=== PATIENT | female | born 1955 | race Caucasian/White ===

== ENCOUNTER 2019-01-29 14:39 | Emergency (ER) | payer OTHER ==
[~2019-01-29] VITALS: Ht 167.6 cm; Wt 74.8 kg
[~2019-01-29 14:39] MED LIST: DONE10TA10 PO
[2019-01-29 14:42] VITALS: BP 135/80
--- NOTE | 2019-01-29 14:42 | NUR ---
PT BIBA BLS TO BED 3
--- NOTE | 2019-01-29 15:03 | NUR ---
PT BIB EMS FROM [facility] FOR RASH R/O SCABIES PER STAFF. TRIED CLOTRIMAZOLE CREAM WITH NO RELIEF. REPORTS RASH TO BILATERAL ARMS/LEGS, CHEST. VSS; PATIENT POSITIONED FOR COMFORT; HOB ELEVATED; BEDRAILS UP X1; BED DOWN. ER MD MADE AWARE OF PT STATUS.
[2019-01-29 16:00] VITALS: BP 135/80
--- NOTE | 2019-01-29 16:01 | NUR ---
Patient discharged with v/s stable. Written and verbal after care instructions given and explained. Patient alert, oriented and verbalized understanding of instructions. Ambulatory with steady gait. All questions addressed prior to discharge. ID band removed. Patient advised to follow up with PMD. Rx of PREDNISONE AND BENADRYL given. Patient educated on indication of medication including possible reaction and side effects. Opportunity to ask questions provided and answered.
== END 2019-01-29 16:01 | disposition home or self-care (01) ==
LOC: MED 14:39
DX: R21 Rash and other nonspecific skin eruption (principal); Z79.899 Other long term (current) drug therapy
CPT/HCPCS: 99283

== ENCOUNTER 2019-09-30 12:41 | Emergency (ER) | payer OTHER ==
[~2019-09-30] VITALS: Ht 157.5 cm; Wt 80.5 kg
[2019-09-30 12:47] VITALS: BP 119/61
--- NOTE | 2019-09-30 12:53 | NUR ---
PATIENT PRESENTS TO ED FROM [facility] C/O AL. PT WITH DEMENTIA. STAFF STATED THAT SHE IS MORE COMBATIVE THAN USUAL AND "NOT HER NORMAL SELF." +EDEMA BILATERAL LE, +SCABS/RASHES ON BILATERAL ANKLES. PT DENIES PAIN AT THIS TIME. SKIN IS PINK/WARM/DRY; AAOX1- ORIENTED TO NAME ONLY. PATIENT IS ABLE TO FOLLOW COMMANDS. LUNGS CLEAR BL; HR EVEN AND REGULAR; PT DENIES ANY FEVER, CP, SOB, OR COUGH AT THIS TIME; PATIENT STATES PAIN OF 0/10 AT THIS TIME; VSS; PATIENT POSITIONED FOR COMFORT; HOB ELEVATED; BEDRAILS UP X2; BED DOWN. ER MD MADE AWARE OF PT STATUS. PMH: DEMENTA, HYPERLIPIDEMIA MEDS: DONEZAPIL, DIPHENHYDRAMINE
[2019-09-30] MEDS ORDERED: IBUPROFEN 400 MG TAB PO ONE (12:55)
[2019-09-30] MEDS ORDERED: ACETAMINOPHEN EXTRA STRENGTH 500 MG TAB PO ONE (12:55)
--- NOTE | 2019-09-30 13:20 | NUR ---
straight cath performed using sterile technique w/ 14fr cath. pt tolerated well. immediate return clear yellow urine, sample collected and sent to lab. pt positioned to comfort after procedure.
[2019-09-30 13:37] LABS: BASOPHILS % (AUTO) 0.3 % (0.0-2.0); EOSINOPHILS # (AUTO) 0.1 K/uL (0-0.4); EOSINOPHILS % (AUTO) 2.2 % (0.0-4.0); HEMATOCRIT 41.6 % (36-48); HEMOGLOBIN 13.8 g/dL (12.0-16.0); LYMPHOCYTES # (AUTO) 1.5 K/uL (2.5-16.5); LYMPHOCYTES % (AUTO) 22.8 % (20.5-51.1); MEAN CORPUSCULAR HEMOGLOBIN 32 pg (27-31); MEAN CORPUSCULAR HGB CONC 33 g/dL (33-37); MEAN CORPUSCULAR VOLUME 95.3 fL (80-94); MONOCYTES # (AUTO) 0.4 K/uL (0.8-1.0); MONOCYTES % (AUTO) 6.2 % (1.7-9.3); NEUTROPHILS # (AUTO) 4.6 K/uL (1.8-7.7); NEUTROPHILS % (AUTO) 68.5 % (42.2-75.2); PLATELET COUNT (AUTO) 263 K/uL (140-450); RED BLOOD CELL COUNT(AUTO) 4.36 MIL/uL (4.20-5.40); RED CELL DISTRIBUTION WIDTH 12.9 % (11.6-13.7); WHITE BLOOD COUNT (AUTO) 6.7 K/uL (4.8-10.8)
[2019-09-30 13:54] LABS: ANION GAP 13.6 (8-16); CARBON DIOXIDE 27.7 mmol/L (21-32); CREATININE 0.6 mg/dL (0.6-1.3); POTASSIUM 3.3 mmol/L (3.5-5.1)
[2019-09-30 13:55] LABS: APPEARANCE,URINE SL CLOUDY (CLEAR); BILIRUBIN,URINE NEGATIVE (NEGATIVE); BLOOD, URINE NEGATIVE (NEGATIVE); COLOR,URINE YELLOW (YELLOW); LEUKOCYTE ESTERASE ,URINE TRACE (NEGATIVE); NITRITE, URINE POSITIVE (NEGATIVE); UGLUCOSE NEGATIVE (NEGATIVE)
[2019-09-30 13:59] LABS: ALBUMIN 3.9 g/dL (3.4-5.0); TOTAL BILIRUBIN 0.6 mg/dL (0.0-1.0)
[2019-09-30 14:07] LABS: RBC,URINE 0-5 /HPF (0-5)
[2019-09-30] MEDS ORDERED: SULFAMETH/TRIMETH DS 800/160MG 1 TAB PO ONE (14:20)
[2019-09-30] MEDS ORDERED: CEPHALEXIN 500 MG CAP PO ONE (14:20)
--- NOTE | 2019-09-30 14:25 | NUR ---
CALL TO [facility] TRANSPORTATION BACK TO FACILITY; ETA [phone].
[2019-09-30 15:33] VITALS: BP 110/60
--- NOTE | 2019-09-30 15:34 | NUR ---
Patient discharged with v/s stable. Written and verbal after care instructions given and explained to caregiver. Ambulatory with steady gait. All questions addressed prior to discharge. ID band removed. Patient advised to follow up with PMD. Rx of Keflex given. Patient educated on indication of medication including possible reaction and side effects. Opportunity to ask questions provided and answered.
== END 2019-09-30 15:34 | disposition home or self-care (01) ==
LOC: MED 12:41
DX: N39.0 Urinary tract infection, site not specified (principal); R60.0 Localized edema; R03.0 Elevated blood-pressure reading, without diagnosis of hypertension; F03.90 Unspecified dementia, unspecified severity, without behavioral disturbance, psychotic disturbance, mood disturbance, and anxiety; E78.5 Hyperlipidemia, unspecified; Z79.899 Other long term (current) drug therapy; Z88.2 Allergy status to sulfonamides
CPT/HCPCS: 36415; 80053; 81001; 82140; 85025; 87086; 87186; 99284; C1758

== ENCOUNTER 2020-03-09 19:15 | Emergency (ER) | payer OTHER ==
[~2020-03-09] VITALS: Ht 157.5 cm; Wt 77.1 kg
[2020-03-09 19:15] VITALS: BP 119/71
--- NOTE | 2020-03-09 19:15 | NUR ---
PT BIBA TO ER BED 09
--- NOTE | 2020-03-09 19:20 | NUR ---
JULIUS FROM [facility]. WITH VAGINAL PAIN X 3 HOURS. PER EMS PT HAS UNKNOWN PROTRUDING MASS FROM VAGINA. HEART SOUND S1S2 PRESENT. A&O X2. PT IS CALM AND COOPERATIVE. VSS. VAGINAL EXAM PERFORMED BY LETTY GAMBINO WITH RN AT BEDSIDE. NO MASS OR PROTRUSION OR ANY DEFORMITY NOTED FROM VAGINA. SIDE RAILS UP X 2. MEDHX- DEMENTIA ALLERGIES- SULFA
--- NOTE | 2020-03-09 21:21 | NUR ---
CALLED [facility] AND GAVE REPORT TO MAYRA Marquee. ALL QUESTIONS AND CONCERNS ANSWERED AT THIS TIME. TRANSPORT ETA WILL BE AT 1045.
--- NOTE | 2020-03-09 21:44 | NUR ---
pt sitting in bed comfortably. no distress noted.
--- NOTE | 2020-03-09 23:34 | NUR ---
Patient discharged with v/s stable. Written and verbal after care instructions given and explained. Patient verbalized understanding. Ambulance Transport to [facility]. All questions addressed prior to discharge. Advised to follow up with PMD.
[2020-03-09 23:35] VITALS: BP 124/82
== END 2020-03-09 23:34 | disposition home or self-care (01) ==
LOC: MED 19:15
DX: N81.10 Cystocele, unspecified (principal); F03.90 Unspecified dementia, unspecified severity, without behavioral disturbance, psychotic disturbance, mood disturbance, and anxiety; Z79.899 Other long term (current) drug therapy; Z90.710 Acquired absence of both cervix and uterus
CPT/HCPCS: 99283

== ENCOUNTER 2021-08-07 15:48 | Emergency (ER) | payer OTHER ==
[~2021-08-07] VITALS: Ht 157.5 cm; Wt 77.1 kg
[2021-08-07 15:58] VITALS: BP 132/88
--- NOTE | 2021-08-07 15:58 | NUR ---
66 Y/O FEMALE BIBA FROM [facility]. PER EMS C/O VAGINAL BLEEDING STARTED TODAY. GCS 14. A&OX1. MEDHX: ALZHEIMER'S, DEMENTIA ALLERGIES: SULFA
--- NOTE | 2021-08-07 16:04 | NUR ---
DR HERNDON EXAMINING PT
--- NOTE | 2021-08-07 16:11 | NUR ---
CALLED PT'S SON, ARA PRADHAN STATES HE IS POWER OF GEOCHEMISTRY TEACHER AND PT'S CODE STATUS IS DNR. STATES IS UNABLE TO PROVIDE PAPERWORK.
--- NOTE | 2021-08-07 17:24 | NUR ---
Pelvic exam performed by DR HERNDON with GAMAL CABRERA at bedside for entire examination. Patient tolerated procedure WELL. Patient assisted to position of comfort after examination.
--- NOTE | 2021-08-07 17:32 | NUR ---
CALLED FAMILY PT SON'S FAMILY WILL COME TO PICK PT UP, BACK TO FACILITY. NO ETA GIVEN.
[2021-08-07 18:26] VITALS: BP 132/88
--- NOTE | 2021-08-07 18:26 | NUR ---
Patient discharged with v/s stable. Written and verbal after care instructions given and explained. Patient alert, oriented and verbalized understanding of instructions. Wheel Chair Assisted with to car. All questions addressed prior to discharge. ID band removed. Patient advised to follow up with PMD. Opportunity to ask questions provided and answered.
== END 2021-08-07 18:26 | disposition home or self-care (01) ==
LOC: MED 15:48
DX: N93.9 Abnormal uterine and vaginal bleeding, unspecified (principal); Z88.2 Allergy status to sulfonamides
CPT/HCPCS: 99284

== ENCOUNTER 2022-02-26 12:12 | Emergency (ER) | payer OTHER ==
[~2022-02-26] VITALS: Ht 160 cm; Wt 47.6 kg
--- NOTE | 2022-02-26 12:17 | NUR ---
BIBA BLS TO ER BED 6
[2022-02-26 12:18] VITALS: BP 110/64
--- NOTE | 2022-02-26 12:26 | NUR ---
JESSICA Lyons at bedside to exam patient.
--- NOTE | 2022-02-26 12:30 | NUR ---
Patient BIB by FARHAN from [facility]. C/O fall x 1 day. Per reported, patient fell yesterday, staff called- patient had right arm pain. PMHx: Dementia and Alzheimer
[2022-02-26] MEDS ORDERED: PRE.625 VG (12:31)
--- NOTE | 2022-02-26 12:41 | NUR ---
Called and spoke with staff in [facility] and asked more informations of incident.
--- NOTE | 2022-02-26 12:42 | NUR ---
[facility] staff will arrange transportation for patient.
[2022-02-26 13:33] VITALS: BP 110/64
--- NOTE | 2022-02-26 13:33 | NUR ---
Patient discharged with v/s stable. Written and verbal after care instructions given and explained. Patient verbalized understanding. Wheel Chair Assisted with to car. All questions addressed prior to discharge. Advised to follow up with PMD.
== END 2022-02-26 13:33 | disposition home or self-care (01) ==
LOC: MED 12:12
DX: Z00.00 Encounter for general adult medical examination without abnormal findings (principal); Z79.899 Other long term (current) drug therapy; F03.90 Unspecified dementia, unspecified severity, without behavioral disturbance, psychotic disturbance, mood disturbance, and anxiety; Z88.2 Allergy status to sulfonamides; W18.39XA Other fall on same level, initial encounter; Y93.01 Activity, walking, marching and hiking; Y92.89 Other specified places as the place of occurrence of the external cause; Y99.8 Other external cause status
CPT/HCPCS: 99283

== ENCOUNTER 2022-06-18 14:42 | Emergency (ER) | payer OTHER ==
[~2022-06-18] VITALS: Ht 157.5 cm; Wt 56.7 kg
[~2022-06-18 14:42] MED LIST changes: +CEPH-588 PO; +PRE.625 VG; +[UNRECOGNIZED DRUG - CODE] PO
[2022-06-18 14:47] VITALS: BP 91/55
[2022-06-18 17:00] VITALS: BP 118/75
[2022-06-18] MEDS ORDERED: DICL100G5 TP (18:36)
[2022-06-18] MEDS ORDERED: LID5T TP (18:36)
== END 2022-06-18 20:40 | disposition home or self-care (01) ==
LOC: MED 14:42
DX: S09.90XA Unspecified injury of head, initial encounter (principal); M54.2 Cervicalgia; M19.90 Unspecified osteoarthritis, unspecified site; F03.90 Unspecified dementia, unspecified severity, without behavioral disturbance, psychotic disturbance, mood disturbance, and anxiety; Z88.2 Allergy status to sulfonamides; Z79.899 Other long term (current) drug therapy; W19.XXXA Unspecified fall, initial encounter; Y93.89 Activity, other specified; Y92.89 Other specified places as the place of occurrence of the external cause; Y99.8 Other external cause status
CPT/HCPCS: 70450; 72125; 99284

== ENCOUNTER 2022-09-08 06:34 | Emergency (ER) | payer OTHER ==
[~2022-09-08] VITALS: Ht 162.6 cm; Wt 54.4 kg
[~2022-09-08 06:34] MED LIST changes: +DICL100G5 TP; +LID5T TP
[2022-09-08 06:36] VITALS: BP 99/65
--- NOTE | 2022-09-08 06:38 | NUR ---
PT BIBA BLS ER BED 5
--- NOTE | 2022-09-08 07:01 | NUR ---
PATIENT ARRIVED FROM [facility] S/P FALL, UNWITNESSED. HAS APPROX. 1-2 CM LACERATION TOP OF HEAD (LEFT)
[2022-09-08 07:30] LABS: BASOPHILS % (AUTO) 0.6 % (0.0-2.0); EOSINOPHILS # (AUTO) 0.1 K/uL (0-0.4); EOSINOPHILS % (AUTO) 1.2 % (0.0-4.0); HEMATOCRIT 34.5 % (36-48); HEMOGLOBIN 11.8 g/dL (12.0-16.0); LYMPHOCYTES # (AUTO) 1.3 K/uL (2.5-16.5); LYMPHOCYTES % (AUTO) 22.9 % (20.5-51.1); MEAN CORPUSCULAR HEMOGLOBIN 33 pg (27-31); MEAN CORPUSCULAR HGB CONC 34 g/dL (33-37); MEAN CORPUSCULAR VOLUME 95.2 fL (80-94); MONOCYTES # (AUTO) 0.4 K/uL (0.8-1.0); MONOCYTES % (AUTO) 6.5 % (1.7-9.3); NEUTROPHILS # (AUTO) 3.8 K/uL (1.8-7.7); NEUTROPHILS % (AUTO) 68.8 % (42.2-75.2); PLATELET COUNT (AUTO) 197 K/uL (140-450); RED BLOOD CELL COUNT(AUTO) 3.63 MIL/uL (4.20-5.40); RED CELL DISTRIBUTION WIDTH 13.6 % (11.6-13.7); WHITE BLOOD COUNT (AUTO) 5.5 K/uL (4.8-10.8)
--- NOTE | 2022-09-08 07:31 | NUR ---
Patient taken for CT scan via [facility] at this time.
--- NOTE | 2022-09-08 07:38 | NUR ---
Patient returned from CT scan via [facility].
[2022-09-08 07:43] LABS: ALBUMIN 3.8 g/dL (3.4-5.0); ANION GAP 12.3 (8-16); ASPARTATE AMINOTRANSFERASE 26 U/L (15-37); CARBON DIOXIDE 26.9 mmol/L (21-32); CHLORIDE 108 mmol/L (98-107); CREATININE 0.4 mg/dL (0.6-1.3); GFR ARICAN-AMERICAN 204 mL/min (>90); GLUCOSE 82 mg/dL (74-106); POTASSIUM 4.2 mmol/L (3.5-5.1); SODIUM SERUM 143 mmol/L (136-145); TOTAL BILIRUBIN 0.7 mg/dL (0.0-1.0); UREA NITROGEN, BLOOD 18 mg/dL (7-18)
[2022-09-08] MEDS ORDERED: IBUPROFEN 600 MG TAB PO ONE (08:05)
[2022-09-08] MEDS ORDERED: cefTRIAXone 1,000 MG in LIDOCAINE MPF 1% 2.1 ML IM ONE (08:10)
[2022-09-08] MEDS ORDERED: CEPH500C16 PO (08:12)
[2022-09-08] MEDS ORDERED: LIDOCAINE MPF 1% 5 ML ONE (08:20)
[2022-09-08] MEDS ORDERED: cefTRIAXone 1,000 MG VIAL ONE (08:20)
[2022-09-08 09:00] LABS: APPEARANCE,URINE SLIGHTLY CLOUDY (CLEAR); BILIRUBIN,URINE NEGATIVE (NEGATIVE); BLOOD, URINE TRACE-I (NEGATIVE); COLOR,URINE YELLOW (YELLOW); LEUKOCYTE ESTERASE ,URINE NEGATIVE (NEGATIVE); NITRITE, URINE POSITIVE (NEGATIVE); UGLUCOSE NEGATIVE (NEGATIVE)
[2022-09-08 09:19] LABS: RBC,URINE 0-5 /HPF (0-5); WBC,URINE 0-5 /HPF (0-5)
[2022-09-08 09:20] LABS: OTHER CASTS, URINE None Seen /LPF (None Seen)
[2022-09-08 09:48] VITALS: BP 110/65
--- NOTE | 2022-09-08 09:48 | NUR ---
[facility] CONTACTED AND MADE AWARE OF PT D/C. REPORT GIVEN TO TATIANA CABRERA
--- NOTE | 2022-09-08 09:48 | NUR ---
Patient discharged with v/s stable. REPORT GIVEN TO TATIANA CARBERA. ALL QUESTIONS ANSWERERD. Written and verbal after care instructions FOR LACERATION CARE, UTI AND FALL PREVENTION given and explained. . PT Ambulatory with ASSIST to car. All questions addressed prior to discharge. ID band removed. Patient advised to follow up with PMD. Rx of KELFEX given.
--- NOTE | 2022-09-08 09:49 | NUR ---
PT TX BACK TO [facility]. TRANSPORTATION PROVIDED BY FACILITY. AUTO INSPECTOR :SCOTT
== END 2022-09-08 09:48 | disposition home or self-care (01) ==
LOC: MED 06:34
DX: S01.01XA Laceration without foreign body of scalp, initial encounter (principal); E78.2 Mixed hyperlipidemia; G31.89 Other specified degenerative diseases of nervous system; W18.30XA Fall on same level, unspecified, initial encounter; Y93.89 Activity, other specified; Y92.89 Other specified places as the place of occurrence of the external cause; Y99.8 Other external cause status
CPT/HCPCS: 12001; 36415; 70450; 71045; 80053; 81001; 84484; 85025; 93005; 96372; 99285; J0696; J2001

== ENCOUNTER 2022-10-18 13:44 | Inpatient (IN) | payer OTHER ==
[~2022-10-18] VITALS: Ht 165.1 cm; Wt 45.8 kg
[~2022-10-18 13:44] MED LIST changes: +CEPH500C16 PO
--- NOTE | 2022-10-18 13:50 | NUR ---
Trina EMMANUELA to bed 10
[2022-10-18 13:57] VITALS: BP 136/78
--- NOTE | 2022-10-18 14:00 | NUR ---
67 Y/O FEMALE JULIUS FROM [facility] C/O UNWITNESSED FALL, PER EMS FACILITY NURSES STATED THAT WHEN THEY PICKED PT UP THEY HEARD A "POP" IN THE LEFT SHOULDER, PT NOTED TO BE GUARDING LEFT SHOULDER AND ARM. CMS INTACT ALLERGY: SULFA PMH: ALZHEIMERS DEMENTIA
--- NOTE | 2022-10-18 16:21 | NUR ---
PT PLACED IN LEFT SHOULDER SLING.
[2022-10-18] MEDS ORDERED: NACL 0.9% 1,000 ML IV SCH (17:05)
[2022-10-18 17:45] LABS: ALBUMIN 3.5 g/dL (3.4-5.0); ASPARTATE AMINOTRANSFERASE 28 U/L (15-37); CREATININE 0.5 mg/dL (0.6-1.3); GFR ARICAN-AMERICAN 158 mL/min (>90); GLUCOSE 103 mg/dL (74-106); TOTAL BILIRUBIN 0.4 mg/dL (0.0-1.0); UREA NITROGEN, BLOOD 20 mg/dL (7-18)
[2022-10-18] MEDS ORDERED: PRE.625 TOP (17:56)
[2022-10-18] MEDS ORDERED: METH-1681 PO (17:56)
[2022-10-18] MEDS ORDERED: ENOXAPARIN 40 MG/0.4 ML SYR SUBQ SCH (18:05)
[2022-10-18 18:10] LABS: ANION GAP 5.3 (8-16); CHLORIDE 106 mmol/L (98-107); POTASSIUM 5.3 mmol/L (3.5-5.1); SODIUM SERUM 135 mmol/L (136-145)
[2022-10-18] MEDS: NACL 0.9% 1,000 ML IV SCH (18:23)
[2022-10-18 18:32] LABS: BASOPHILS % (AUTO) 0.3 % (0.0-2.0); EOSINOPHILS % (AUTO) 0.5 % (0.0-4.0); HEMATOCRIT 36.7 % (36-48); HEMOGLOBIN 12.5 g/dL (12.0-16.0); LYMPHOCYTES # (AUTO) 1.6 K/uL (2.5-16.5); LYMPHOCYTES % (AUTO) 16.7 % (20.5-51.1); MEAN CORPUSCULAR HEMOGLOBIN 33 pg (27-31); MEAN CORPUSCULAR HGB CONC 34 g/dL (33-37); MEAN CORPUSCULAR VOLUME 96.2 fL (80-94); MONOCYTES # (AUTO) 0.6 K/uL (0.8-1.0); MONOCYTES % (AUTO) 6.3 % (1.7-9.3); NEUTROPHILS # (AUTO) 7.2 K/uL (1.8-7.7); NEUTROPHILS % (AUTO) 76.2 % (42.2-75.2); PLATELET COUNT (AUTO) 189 K/uL (140-450); RED BLOOD CELL COUNT(AUTO) 3.81 MIL/uL (4.20-5.40); RED CELL DISTRIBUTION WIDTH 12.5 % (11.6-13.7); WHITE BLOOD COUNT (AUTO) 9.5 K/uL (4.8-10.8)
--- NOTE | 2022-10-18 19:10 | NUR ---
REPORT TO RIDDHI CABRERA, TRANSFER OF CARE AT THIS TIME
[2022-10-18 19:13] LABS: APPEARANCE,URINE SL CLOUDY (CLEAR); BILIRUBIN,URINE NEGATIVE (NEGATIVE); BLOOD, URINE TRACE-I (NEGATIVE); COLOR,URINE YELLOW (YELLOW); LEUKOCYTE ESTERASE ,URINE NEGATIVE (NEGATIVE); NITRITE, URINE NEGATIVE (NEGATIVE); UGLUCOSE NEGATIVE (NEGATIVE)
[2022-10-18 19:33] LABS: RBC,URINE NONE SEEN /HPF (0-5); TRICHOMONAS,URINE None Seen /HPF (None Seen); WBC,URINE NONE SEEN /HPF (0-5); YEAST,URINE None Seen /HPF (None Seen)
--- NOTE | 2022-10-18 19:47 | NUR ---
Patient is A/Ox1, confused, resting comfortably in bed, chest rise and fall symmetrical, no s/s of distress. Addendum: 10/18/22 at 2153 by [id number] Patient is A/Ox0, confused, resting comfortably in bed, chest rise and fall symmetrical, no s/s of distress.
--- NOTE | 2022-10-18 20:40 | NUR ---
Patient is A/Ox1, confused, resting comfortably in bed, chest rise and fall symmetrical, no s/s of distress. Addendum: 10/18/22 at 2153 by [id number] Patient is A/Ox0, confused, resting comfortably in bed, chest rise and fall symmetrical, no s/s of distress.
--- NOTE | 2022-10-18 21:51 | NUR ---
Patient is A/Ox1, confused, resting comfortably in bed, chest rise and fall symmetrical, no s/s of distress. Addendum: 10/18/22 at 2153 by [id number] Patient is A/Ox0, confused, resting comfortably in bed, chest rise and fall symmetrical, no s/s of distress.
--- NOTE | 2022-10-18 22:06 | NUR ---
Patient will be admitted to care of Telemetry nurse Shine CABRERA. Admited to telemetry. Will go to room 110A. Belongings list completed. Report to Telemetry nurse Shine CABRERA, Telemetry nurse Shine CABRERA verbalized understanding of report, no further questions. Patient safely transferred to floor, Patient is A/Ox4, confused, resting comfortably in bed, chest rise and fall symmetrical, no s/s of distress, patient on monitor.
[2022-10-18 22:15] VITALS: BP 118/64
--- NOTE | 2022-10-18 22:15 | NUR ---
RECEIVED REPORT FROM ER NURSE RIDDHI FOR CONTINUITY OF CARE. PATIENT IS NON-VERBAL. PATIENT IS ON ROOM AIR, PATIENT'S BREATHING IS NORMAL WITH SYMMETRICAL RISE AND FALL OF CHEST. ADMISSION VITALS WERE: BP 118/64, HR 63, O2 100, RR 16, TEMP 96.5. PATIENT'S IV IS A 22G RFA; RUNNING NS AT 150. PATIENT HAS LEFT HUMERAL FRACTURE AND LEFT ARM IS IN SLING. PATIENT WAS WET WHEN SHE ARRIVED AND WAS CHANGED BY QUALITY PROCESS AUDITOR; SHE HAD A BM IN HER DIAPER. PATIENT WAS GIVEN A NEW [employer] DIAPER. PATIENT IS LYING IN SEMI-FOWLERS POSITION. BED IS IN LOWEST POSITION, WHEELS LOCKED, CALL LIGHT IN PLACE.
[2022-10-19] VITALS: BP 131/68
--- NOTE | 2022-10-19 00:10 | NUR ---
CHANGED PATIENT'S IV BAG; HANGING NEW BAG OF NS AND RUNNING IT AT 150ML. PATIENT WAS SLEEPING, LYING IN SEMI-FOWLERS POSITION. BREATHING WAS NORMAL WITH SYMMETRICAL RISE AND FALL OF CHEST. WILL CONTINUE TO OBSERVE PATIENT.
--- NOTE | 2022-10-19 02:30 | NUR ---
LOOKED IN ON PATIENT. PATIENT WAS SLEEPING, LYING SUPINE IN SEMI-FOWLERS POSITION. BREATHING WAS NORMAL WITH SYMMETRICAL RISE AND FALL OF CHEST. IV WAS RUNNING NS 150ML. BED WAS IN LOWEST POSITION, WHEELS LOCKED, CALL LIGHT IN PLACE. WILL CONTINUE TO OBSERVE PATIENT.
[2022-10-19 04:00] VITALS: BP 115/49
--- NOTE | 2022-10-19 05:00 | NUR ---
LOOKED IN ON PATIENT. PATIENT WAS SLEEPING, LYING SUPINE IN SEMI-FOWLERS POSITION. BREATHING WAS NORMAL WITH SYMMETRICAL RISE AND FALL OF CHEST. IV WAS RUNNING NS 150ML. WILL CONTINUE TO OBSERVE PATIENT.
[2022-10-19] MEDS: NACL 0.9% 1,000 ML IV SCH ×4 (06:37→20:00)
--- NOTE | 2022-10-19 07:15 | NUR ---
ENDORSED TO DAY SHIFT NURSE BLANCA FOR CONTINUITY OF CARE. PATIENT IS STABLE.
--- NOTE | 2022-10-19 07:51 | NUR ---
RECEIVED PT FROM DIGGING MACHINE OPERATOR NURSE FOR CONTINUITY OF CARE. PT IN BED WITH EYES CLOSED. EVEN CHEST RISE AND FALL. RESPIRATIONS EVEN AND UNLABORED ON RA. IV ON R F/A 22G INFUSING NS AT 150. NO DISTRESS NOTED. CALL LIGHT WITHIN REACH. ALL SAFETY PRECAUTIONS IN PLACE.
[2022-10-19 08:00] VITALS: BP 117/71
--- NOTE | 2022-10-19 09:41 | NUR ---
PATIENT HAS BEEN SCREENED AND CATEGORIZED HIGH NUTRITION RISK. PATIENT WILL BE SEEN WITHIN 1-2 DAYS OF ADMISSION. 10/18/22-10/20/[address]
[2022-10-19] MEDS: ENOXAPARIN 40 MG/0.4 ML SYR SUBQ SCH (09:52)
[2022-10-19 12:00] VITALS: BP 123/70
[2022-10-19 16:00] VITALS: BP 121/70
--- NOTE | 2022-10-19 18:29 | NUR ---
10/19/2022 RD INITIAL ASSESSMENT COMPLETED. PLEASE REFER TO NUTRITION ASSESSMENT UNDER CARE ACTIVITY FOR ESTIMATED NUTRITIONAL NEEDS. 1.CONTINUE WITH MECHANICAL SOFT DIET. WHEN/IF MEDICALLY APPROPRIATE, ADVANCE GRADUALLY TO REGULAR DIET PT TOLERATES. 2.MONITOR PO INTAKE. 3.RD TO FOLLOW-UP IN 2-3 DAYS PATIENT IS HIGH RISK. JUDY BRADY RD
[2022-10-19] MEDS ORDERED: LORazepam 2 MG/ML VIAL IVP PRN (19:05)
--- NOTE | 2022-10-19 19:30 | NUR ---
RECEIVED PT FROM MORNING SHIFT NURSE. PT IS ON BEDBOUND AND APHASIC. PT IS ON ROOM AIR AND ON MECHANICAL SOFT DIET. PT HAS IV ON RIGHT FOREARM GAUGE 22 RUNNING WITH NS AT 150. PT HAS SLING ON LEFT ARM BUT THE PT KEEPS REMOVING IT. PT SKIN IS INTACT. ALL SAFETY MEASURES IMPLEMENTED. BED IN LOW POSITION, BED WHEELS ON LOCKED AND CALL LIGHT WITHIN REACH.
[2022-10-19 20:00] VITALS: BP 117/60
--- NOTE | 2022-10-19 22:00 | NUR ---
PT IV WAS INFILTRATED. INSERTED NEW IV ON RIGHT FOREARM GAUGE 20. IV IS NOW PATENT AND INTACT. ALL SAFETY MEASURES IMPLEMENTED. BED IN LOW POSITION, BED WHEELS ON LOCKED AND CALL LIGHT WITHIN REACH.
--- NOTE | 2022-10-19 23:55 | NUR ---
PT IS STABLE. ENDORSED PT TO DEBORAH KIM DUE TO CHANGED OF ASSIGNMENT FOR CONTINUITY OF CARE.
--- NOTE | 2022-10-19 23:57 | NUR ---
RECEIVED PT FROM SANTIAGO CABRERA FOR CONTINUITY OF CARE. PT IS STABLE
[2022-10-20] VITALS: BP 124/55
--- NOTE | 2022-10-20 02:00 | NUR ---
PATIENT ASLEEP, RESPIRATION EVEN AND UNLABORED,NO DISTRESS NOTED
[2022-10-20] MEDS: NACL 0.9% 1,000 ML IV SCH ×4 (02:40→22:40)
[2022-10-20 04:00] VITALS: BP 124/55
[2022-10-20 07:21] LABS: BASOPHILS % (AUTO) 0.4 % (0.0-2.0); EOSINOPHILS # (AUTO) 0.1 K/uL (0-0.4); EOSINOPHILS % (AUTO) 1.1 % (0.0-4.0); HEMATOCRIT 35.3 % (36-48); LYMPHOCYTES # (AUTO) 1.3 K/uL (2.5-16.5); LYMPHOCYTES % (AUTO) 21.8 % (20.5-51.1); MEAN CORPUSCULAR HEMOGLOBIN 32 pg (27-31); MEAN CORPUSCULAR HGB CONC 34 g/dL (33-37); MEAN CORPUSCULAR VOLUME 95.4 fL (80-94); MONOCYTES # (AUTO) 0.5 K/uL (0.8-1.0); MONOCYTES % (AUTO) 8.5 % (1.7-9.3); NEUTROPHILS # (AUTO) 4.2 K/uL (1.8-7.7); NEUTROPHILS % (AUTO) 68.2 % (42.2-75.2); PLATELET COUNT (AUTO) 188 K/uL (140-450); RED CELL DISTRIBUTION WIDTH 12.6 % (11.6-13.7); WHITE BLOOD COUNT (AUTO) 6.1 K/uL (4.8-10.8)
[2022-10-20 07:37] LABS: ALBUMIN 3.1 g/dL (3.4-5.0); ANION GAP 11.9 (8-16); CARBON DIOXIDE 28.8 mmol/L (21-32); CREATININE 0.4 mg/dL (0.6-1.3); POTASSIUM 3.7 mmol/L (3.5-5.1); TOTAL BILIRUBIN 0.9 mg/dL (0.0-1.0)
[2022-10-20 08:00] VITALS: BP 117/72
[2022-10-20] MEDS ORDERED: POTASSIUM CHLORIDE 10 MEQ TABER PO PRN (08:50)
[2022-10-20] MEDS ORDERED: MAG SULF 2000 MG/WATER PREMIX 50 ML IV PRN (08:50)
--- NOTE | 2022-10-20 09:27 | NUR ---
PT. WITH LOW AMANDA SCALE AT MODERATE TO HIGH RISK, CONTINUE TO FOLLOW PRESSURE INJURY PREVENTION INTERVENTIONS. -POSITIONING: TURN AND REPOSITION PATIENT Q 2H OR SOONER USE PILLOWS TO KEEP BONY PROMINENCES FROM DIRECT CONTACT WITH SURFACES USE REPOSITIONING WEDGES TO PROVIDE 30-DEGREE ANGLE FOR SIDE LYING POSITIONS OFFLOADING OR FOAM DRESSING TO ALL TUBING TO PREVENT MEDICAL DEVICES RELATED PRESSURE INJURY -RE-EVALUATING AND MANAGING INCONTINENCE MONITOR SKIN CONDITION DURING POSITION CHANGE DO NOT MASSAGE REDNESS, BONY PROMINENCES FREQUENT HAYES-CARE AND PROVIDE BARRIER CREAMS PRN IF SOILING MOISTURE CONTROL BY OFFER BED GUZMÁN/URINAL /ABSORBENT PAD TO WICK AND HOLD MOISTURE KEEP SKIN DRY AND PROTECT FROM FRICTION -MANAGE FRICTION/SHEAR/MOBILITY KEEP HOB AT THE LOWEST LEVEL OF ELEVATION NO MORE THAN 30 DEGREE UNLESS OTHERWISE CONTRAINDICATED USE LIFT SHEET OR TRANSFER DEVICE TO MOVE PATIENT AND PREVENT LATERAL SHEER. PROTECT HEELS, ELBOWS BONY PROMINENCES WITH SKIN BERRIES OR FOAM DRESSING IF EXPOSED TO FRICTION OFFLOAD BILATERAL HEELS BY PLACING PILLOWS UNDER CALVES AT ALL TIMES, UNLESS OTHERWISE CONTRAINDICATED -PRESSURE REDISTRIBUTION SURFACE THERAPY JANEE ISOFLEX MATTRESS -NUTRITION: PLEASE FOLLOW RD RECOMMENDATIONS AND OFFER NUTRITION SUPPLEMENTS IF ORDERED. PLEASE CONTACT WOUND CARE NURSE FOR ANY QUESTION AND CHANGE OF WOUND CONDITION.
[2022-10-20] MEDS: ENOXAPARIN 40 MG/0.4 ML SYR SUBQ SCH (09:51)
[2022-10-20 12:00] VITALS: BP 99/63
[2022-10-20] MEDS ORDERED: ACETAMINOPHEN 325 MG TAB PO PRN (14:15)
[2022-10-20] MEDS ORDERED: HYDROcodone/APAP 7.5/325 MG 1 TAB PO PRN (14:15)
[2022-10-20 16:00] VITALS: BP 119/54
--- NOTE | 2022-10-20 19:28 | NUR ---
RECEIVED ENDORSEMENT FROM DAY SHIFT NURSE FOR CONTINUITY OF CARE. PT IS ON BED, AWAKE, ALERT AND CONFUSE. RESPIRATION EVEN WITH NO SOB OR DISTRESS. SKIN INTACT AND WARM. PT IS BED BOUND. LEFT UPPER ARM NOTED WITH APPLICATION OF SLING. PT HAVE MILD FACIAL GRIMACING WHEN LEFT UPPER ARM TOUCHED. PT IS NON VERBAL. IV FLUID OF SODIUM CHLORIDE IS INFUSING WELL AT 150ML/HR. IV SITE IS ON RIGHT WRIST 20G, INTACT AND PATENT.
--- NOTE | 2022-10-20 19:29 | NUR ---
ENDORSE PATIENT TO PM SHIFT NURSE WITH STABLE CONDITION. PT HERE TO EVALUATE PATIENT'S WEIGHT BEAR STATUS POST PATIENT HAD UNWITNESSED FALL IN [facility]. PIV PRESENT AT R. WRIST INFUSING NS @150ML/HR.
[2022-10-20 20:00] VITALS: BP 119/76
--- NOTE | 2022-10-20 22:00 | NUR ---
PT IS SLEEPING WELL, IV FLUID INFUSING WELL, NO NOTED ANY SIGN/SYMPTOM OF INFECTION.
[2022-10-21] VITALS: BP 106/91
[2022-10-21] MEDS: NACL 0.9% 1,000 ML IV SCH ×3 (00:20→16:39)
--- NOTE | 2022-10-21 02:00 | NUR ---
PT IS ASLEEP, AROUSABLE ON STIMULI.
[2022-10-21 04:00] VITALS: BP 124/66
--- NOTE | 2022-10-21 05:30 | NUR ---
RENDERED PERSONAL HYGIENE. PT HAS LARGE OF SOFT BM.
--- NOTE | 2022-10-21 07:30 | NUR ---
PT IS ON STABLE CONDITION. ALL SAFETY MEASURES ARE IN PLACE. ENDORSED TO DAY SHIFT NURSE FOR CONTINUITY OF CARE.
--- NOTE | 2022-10-21 07:31 | NUR ---
RECEIVED REPORT FROM DE ICER KIT ASSEMBLER NURSE FOR CONTINUITY OF CARE. PT SLEEPING IN BED. EASILY AROUSABLE BY VERBAL STIMULI. RESPIRATIONS EVEN AND UNLABORED ON RA. NO DISTRESS NOTED. NO SIGNS OF PAIN. IV ON RIGHT WRIST LEAKING. IVF NOT INFUSING. REMOVED IV CATHETER TIP INTACT. WILL ATTEMPT TYO INSERT A NEW IV LINE. CALL LIGHT WITHIN REACH. SAFETY PRECAUTIONS IN PLACE.
[2022-10-21 08:00] VITALS: BP 127/73
[2022-10-21] MEDS: ENOXAPARIN 40 MG/0.4 ML SYR SUBQ SCH (09:07)
--- NOTE | 2022-10-21 09:07 | NUR ---
ADMINISTERED SCHEDULED MED. PT TOLERATED WELL.
--- NOTE | 2022-10-21 12:00 | NUR ---
DISCHARGE PLANNING PATIENT IS A 67 YEAR OLD FEMALE ADMITTED TO [facility]/ED DUE TO MECHANICAL FALL, HUMERAL. SW ATTEMPTED TO MEET WITH PATIENT TO DISCUSS AND GATHER HER COLLATERAL INFORMATION. PATIENT WAS NOT AWAKE AND ALERT; UNABLE TO PROVIDE HER OWN INFORMATION. SW LEFT ROOM AND CALLED PATIENT'S ASSISTING [facility] TO GET HER INFORMATION. SW CALL AT AND SPOKE TO PATEL FROM ADMINISTRATION WHO WAS ABLE TO PROVIDE SOME OF PATIENT'S INFORMATION. PER PATEL PATIENT HAS BEEN IN THEIR FACILITY SINCE 08/2015 AND HAS BEEN PLACED [facility] WHEN SHE GET ASSISTANCE WITH HER CARE AND MEDICATIONS. PER PATEL PATIENT IS ACTIVE AND AMBULATES NO NEED OF DME AT THIS TIME AND SHE WILL BE ABLE TO RETURN TO THEIR FACILITY WHEN SHE IS READY AND STABLE TO DISCHARGED. PATEL CONFIRM PATIENT'S FAMILY INFORMATION AND PROVIDED SW WITH PATIENT'S POA SON ANGELINE PRADHAN AT . SW CALL PATIENT'S SON ANGELINE PRADHAN AT ; WHEN DISCUSSING PATIENT'S CARE PATIENT'S SON ABLE TO CONFIRM INFORMATION AND STATED THAT HE WANTS PATIENT TO RETURN [facility] WHEN SE IS READY AND STABLE TO DISCHARGE. SW THANKED HIM FOR ALL THE INFORMATION. HEIKE/CM WILL FOLLOW UP NEEDED.
--- NOTE | 2022-10-21 15:17 | NUR ---
10/21/22 RD FOLLOW UP COMPLETED PLEASE REFER TO NUTRITION ASSESSMENT UNDER CARE ACTIVITY FOR ESTIMATED NUTRITIONAL NEEDS. 1. CONTINUE WITH MECHANICAL SOFT DIET WITH HEALTHSHAKES TOLERATED -CONTINUE ENSURE 1XDAY FOR NUTRITION SUPPORT 2. MONITOR PO INTAKE. 3. RD TO FOLLOW-UP IN 7 DAYS PATIENT IS LOW RISK. NATALIE WALKER, RD
--- NOTE | 2022-10-21 15:49 | NUR ---
REPOSITIONED PT. NO SIGNS OF DISTRESS OR DISCOMFORT NOTED. WILL CONTINUE TO MONITOR.
[2022-10-21 16:00] VITALS: BP 123/77
--- NOTE | 2022-10-21 19:17 | NUR ---
BEDSIDE ENDORSEMENT TO CAR STEREO INSTALLER NURSE FOR CONTINUITY OF CARE. ALL NEEDS MET THROUGHOUT SHIFT. PT IS STABLE.
[2022-10-21 20:00] VITALS: BP 127/68
[2022-10-22] VITALS: BP 127/70
[2022-10-22] MEDS: NACL 0.9% 1,000 ML IV SCH ×3 (01:20→15:20)
--- NOTE | 2022-10-22 07:32 | NUR ---
RECEIVED REPORT FROM SNOW PLOW TRACTOR OPERATOR NURSE FOR CONTINUITY OF CARE. PT IN BED RESTING AT THIS TIME. RESPIRATIONS ARE EVEN AND UNLABORED ON ROOM AIR. NO SIGNS OF DISTRESS NOTED. PT IS NONVERBAL PER BASELINE. AROUSABLE TO VERBALIZATION. PT ABD IS NONTENDER, NONDISTENDED WITH BOWEL SOUNDS PRESENT. PT IS ON MECHANICAL SOFT DIET, TOLERATING WELL. PT HAS DX OF L HUMERUS FRACTURE, PT HAS SLING TO L ARM. SKIN IS WARM, DRY, AND INTACT. PT HAS IV TO RFA 22G, RUNNING NS AT 150 ML/HR. CALL LIGHT WITHIN REACH. ALL SAFETY MEASURES IN PLACE. WILL CONTINUE TO MONITOR.
[2022-10-22 08:00] VITALS: BP 124/70
[2022-10-22] MEDS: ENOXAPARIN 40 MG/0.4 ML SYR SUBQ SCH (09:38)
--- NOTE | 2022-10-22 09:39 | NUR ---
ADMINISTERED ALL SCHEDULED MEDICATIONS. EDUCATED PT REGARDING MEDS ADMINISTERED.
[2022-10-22 09:41] LABS: ANION GAP 12.5 (8-16); CARBON DIOXIDE 29.2 mmol/L (21-32); CREATININE 0.3 mg/dL (0.6-1.3); POTASSIUM 3.7 mmol/L (3.5-5.1)
[2022-10-22 10:43] LABS: BASOPHILS % (AUTO) 0.3 % (0.0-2.0); EOSINOPHILS # (AUTO) 0.1 K/uL (0-0.4); HEMATOCRIT 39.8 % (36-48); HEMOGLOBIN 13.5 g/dL (12.0-16.0); LYMPHOCYTES # (AUTO) 1.2 K/uL (2.5-16.5); LYMPHOCYTES % (AUTO) 21.4 % (20.5-51.1); MEAN CORPUSCULAR HEMOGLOBIN 33 pg (27-31); MEAN CORPUSCULAR HGB CONC 34 g/dL (33-37); MEAN CORPUSCULAR VOLUME 96.1 fL (80-94); MONOCYTES # (AUTO) 0.5 K/uL (0.8-1.0); MONOCYTES % (AUTO) 8.1 % (1.7-9.3); NEUTROPHILS # (AUTO) 3.8 K/uL (1.8-7.7); NEUTROPHILS % (AUTO) 68.2 % (42.2-75.2); PLATELET COUNT (AUTO) 189 K/uL (140-450); RED BLOOD CELL COUNT(AUTO) 4.14 MIL/uL (4.20-5.40); RED CELL DISTRIBUTION WIDTH 12.4 % (11.6-13.7); WHITE BLOOD COUNT (AUTO) 5.6 K/uL (4.8-10.8)
[2022-10-22 11:29] LABS: PHOSPHORUS 3.1 mg/dL (2.5-4.9)
--- NOTE | 2022-10-22 11:46 | NUR ---
DC PLANNING PATIENT IS ACCEPTED AT [facility] CAN GO TO ROOM 22A # TO GIVE REPORT [phone] ARRANGED TRANSPORT WITH [facility] ORDER PICKER TIME 6 PM NOTIFIED KAYLA CHARGE NURSE. CM TO FOLLOW
--- NOTE | 2022-10-22 12:45 | NUR ---
PT ATTEMPTING TO PULL AT IV LINES. RE-DIRECTED PT.
--- NOTE | 2022-10-22 15:01 | NUR ---
ASSISTED WITH CHANGING AND REPOSITIONING PT. PT TOLERATED WELL.
[2022-10-22 16:00] VITALS: BP 132/65
--- NOTE | 2022-10-22 16:32 | NUR ---
CALLED [facility] TO GIVE REPORT ON PT. SPOKE WITH IVAN. AWAITING TRANSPORT FOR [place].
--- NOTE | 2022-10-22 18:00 | NUR ---
PT DISCHARGED TO [facility]. ALL BELONGINGS TAKEN UPON DISCHARGE. IV REMOVED, IV CATHETER INTACT.
== END 2022-10-22 18:00 | DRG 563 ==
LOC: MED 13:44 → MTU 17:07
PROVIDERS: ADMIT Family Medicine; ATTEND Family Medicine
DX: S42.292A Other displaced fracture of upper end of left humerus, initial encounter for closed fracture (principal); E87.1 Hypo-osmolality and hyponatremia; E44.1 Mild protein-calorie malnutrition; Z68.1 Body mass index [BMI] 19.9 or less, adult; E87.5 Hyperkalemia; M47.819 Spondylosis without myelopathy or radiculopathy, site unspecified; E86.0 Dehydration; F03.90 Unspecified dementia, unspecified severity, without behavioral disturbance, psychotic disturbance, mood disturbance, and anxiety; G90.8 Other disorders of autonomic nervous system; Z20.822 Contact with and (suspected) exposure to COVID-19; S14.109A Unspecified injury at unspecified level of cervical spinal cord, initial encounter; W18.39XA Other fall on same level, initial encounter; F02.80 Dementia in other diseases classified elsewhere, unspecified severity, without behavioral disturbance, psychotic disturbance, mood disturbance, and anxiety; Z79.2 Long term (current) use of antibiotics; Z88.2 Allergy status to sulfonamides; Z79.899 Other long term (current) drug therapy; Y93.89 Activity, other specified; Y92.89 Other specified places as the place of occurrence of the external cause; Y99.8 Other external cause status
CPT/HCPCS: 36415; 70450; 72125; 73030; 73060; 73080; 73090; 73110; 73130; 80048; 80053; 81001; 83735; 84100; 84484; 85025; 87081; 93005; 97110; 97112; 97116; 97163-GP; 97530; 99285; J1650